=== PATIENT | male | born 1965 | race Caucasian/White ===

== ENCOUNTER 2020-05-16 14:19 | Emergency (ER) | payer OTHER ==
--- NOTE | 2020-05-16 15:19 | ER ---
Nurse's Notes [facility] Name: Earl Loomis III Age: 54 yrs Sex: Male : 1965 Arrival Date: 05/16/2020 Time: 14:22 Bed 17 Private MD: Diagnosis: Puncture wound of the lower leg (Right) Presentation: 05/16 14:47 Chief complaint: Patient states: was mowing grass, small stick punctured his right calf iw area, was able to pull the stick out but is worried about infection , occurred approx 30 minutes ago. 14:47 Acuity: PETER 4 iw 14:47 Method Of Arrival: Ambulatory iw 15:00 Coronavirus screen: At this time, the client does not indicate any symptoms associated zb with coronavirus-19. Ebola Screen: No symptoms or risks identified at this time. Initial Sepsis Screen: Does the patient meet any 2 criteria? No. Patient's initial sepsis screen is negative. Does the patient have a suspected source of infection? No. Patient's initial sepsis screen is negative. Risk Assessment: Do you want to hurt yourself or someone else? Patient reports no desire to harm self or others. Onset of symptoms was May 16, 2020. Historical: - Allergies: 14:48 No Known Allergies; iw - Home Meds: 14:48 lisinopril-hydrochlorothiazide oral oral once daily [Active]; iw - PMHx: 14:48 Hypertension; Hyperlipidemia; iw - PSHx: 14:48 None; iw - Immunization history:: Last tetanus immunization: unknown. - Social history:: Smoking status: Patient/guardian denies using tobacco, Stopped _ months ago 6. Screenin:00 Abuse screen: Denies threats or abuse. Denies injuries from another. Nutritional zb screening: No deficits noted. Tuberculosis screening: No symptoms or risk factors identified. Fall Risk None identified. Assessment: 15:00 General: Appears in no apparent distress. comfortable, Behavior is calm, cooperative, zb appropriate for age. Pain: Complains of pain in lateral aspect of right calf Pain does not radiate. Quality of pain is described as aching. Neuro: Level of Consciousness is awake, alert, obeys commands, Oriented to person, place, time, situation. Cardiovascular: Heart tones S1 S2 present Capillary refill < 3 seconds in bilateral fingers Patient's skin is warm and dry. Respiratory: Airway is patent Respiratory effort is even, unlabored, Respiratory pattern is regular, symmetrical. GI: Abdomen is flat, non-distended, Bowel sounds present X 4 quads. : No signs and/or symptoms were reported regarding the genitourinary system. EENT: No signs and/or symptoms were reported regarding the EENT system. Derm: Skin is healthy with good turgor, Skin is dry, Skin is normal, Skin temperature is warm. Musculoskeletal: Range of motion: intact in all extremities, Swelling present in lateral aspect of right calf. Injury Description: Puncture sustained to lateral aspect of right calf is superficial, was sustained today. 15:50 Reassessment: pt aox4. IM injection wait time completed. gait stable and even. d/c zb instruction explained. Vital Signs: 14:49 BP 111 / 74; Pulse 68; Resp 16; Temp 98.6; Pulse Ox 100% on R/A; Weight 62.14 kg; iw Height 5 ft. 8 in. (172.72 cm); 14:49 Body Mass Index 20.83 (62.14 kg, 172.72 cm) ED Course: 14:22 Patient arrived in ED. as 14:48 Triage completed. 15:00 Sonu Frederick PA is PHCP. [facility] 15:00 Weston Hernandez MD is Attending Physician. [facility] 15:00 Arm band placed on right wrist. zb 15:00 Patient has correct armband on for positive identification. Pulse ox on. NIBP on. Door zb closed. Noise minimized. Warm blanket given. 15:20 Elidia Linda RN is Primary Nurse. zb 15:50 Patient did not have IV access during this emergency room visit. zb 15:54 No provider procedures requiring assistance completed. zb Administered Medications: 15:30 Drug: Tetanus-Diphtheria Toxoid Adult 0.5 ml {Qc Analyst: [employer]. Exp: zb 06/18/2021. Lot #: [id number]. } Route: IM; Site: right deltoid; Outcome: 15:19 Discharge ordered by . jmm 15:51 Patient left the ED. zb Signatures: Sonu Frederick PA PA jmm Martinez, Amelia as Williams, Irene, RN RN Brown, Elidia, RN RN zb Corrections: (The following items were deleted from the chart) 14:49 14:48 Social history: Smoking status: Patient denies any tobacco usage or history of. [facility] 15:54 15:54 General: Appears chris perez
--- NOTE | 2020-05-16 15:19 | EDPHYS ---
Physician Documentation [facility] Name: Earl Loomis III Age: 54 yrs Sex: Male : 1965 Arrival Date: 05/16/2020 Time: 14:22 Bed 17 Private MD: ED Physician Weston Hernandez HPI: 05/16 15:14 This 54 yrs old Male presents to ER via Ambulatory with complaints of jmm Puncture Wound To Leg. 15:14 The patient presents with an injury, pain. Onset: The symptoms/episode began/occurred jmm acutely, just prior to arrival. Modifying factors: The symptoms are alleviated by nothing. the symptoms are aggravated by nothing. Associated signs and symptoms: Pertinent positives: calf tenderness, Pertinent negatives fever, numbness, rash, swelling, tingling, vomiting, warmth, weakness. This is a 54 year old male with a history of htn, hlp that presents to the ED with complaints of right calf injury. Patient states he was hit by a metal wire while mowing his lawn. Patient states he had to pull the object out of his leg. Denies other injury. Historical: - Allergies: 14:48 No Known Allergies; iw - Home Meds: 14:48 lisinopril-hydrochlorothiazide oral oral once daily [Active]; iw - PMHx: 14:48 Hypertension; Hyperlipidemia; iw - PSHx: 14:48 None; iw - Immunization history:: Last tetanus immunization: unknown. - Social history:: Smoking status: Patient/guardian denies using tobacco, Stopped _ months ago 6. ROS: 15:14 Constitutional: Negative for fever, chills, and weight loss, Cardiovascular: Negative jmm for chest pain, palpitations, and edema, Respiratory: Negative for shortness of breath, cough, wheezing, and pleuritic chest pain. 15:14 MS/extremity: Positive for injury or acute deformity. 15:14 All other systems are negative. Exam: 15:14 Constitutional: This is a well developed, well nourished patient who is awake, alert, jmm and in no acute distress. Head/Face: atraumatic. Eyes: EOMI, no conjunctival erythema appreciated ENT: Moist Mucus Membranes Neck: Trachea midline, Supple Chest/axilla: Normal chest wall appearance and motion. Cardiovascular: Regular rate and rhythm. No edema appreciated Respiratory: Normal respirations, no respiratory distress appreciated Abdomen/GI: Non distended, soft Back: Normal ROM 15:14 Skin: puncture wound noted to the right lateral lower leg, no active bleeding, no surrounding erythema. 15:14 Neuro: Orientation: is normal, Mentation: is normal, Memory: is normal. 15:14 Psych: Behavior/mood is pleasant, cooperative. Vital Signs: 14:49 BP 111 / 74; Pulse 68; Resp 16; Temp 98.6; Pulse Ox 100% on R/A; Weight 62.14 kg; iw Height 5 ft. 8 in. (172.72 cm); 14:49 Body Mass Index 20.83 (62.14 kg, 172.72 cm) iw MDM: 15:03 Patient medically screened. [facility] 15:16 Data reviewed: vital signs, nurses notes. Counseling: I had a detailed discussion with temitoep the patient and/or guardian regarding: the historical points, exam findings, and any diagnostic results supporting the discharge/admit diagnosis, the need for outpatient follow up, to return to the emergency department if symptoms worsen or persist or if there are any questions or concerns that arise at home. ED course: Patient given wound infection return precautions. Patient understood and agrees with the plan of care. . 05/16 15:10 Order name: Wound Care; Complete Time: 15:51 [facility] Administered Medications: 15:30 Drug: Tetanus-Diphtheria Toxoid Adult 0.5 ml {Customer Care Voice Consultant: [employer]. Exp: zb 06/18/2021. Lot #: [id number]. } Route: IM; Site: right deltoid; Disposition: 17:22 Co-signature as Attending Physician, Weston Hernandez MD. rn Disposition: 05/16/20 15:19 Discharged to Home. Impression: Puncture wound of the lower leg (Right). - Condition is Stable. - Discharge Instructions: Puncture Wound. - Prescriptions for Doxycycline Hyclate 100 mg Oral Tablet - take 1 tablet by ORAL route every 12 hours; 20 tablet. - Medication Reconciliation Form, Thank You Letter, Antibiotic Education, Prescription Opioid Use form. - Follow up: Private Physician; When: 2 - 3 days; Reason: Recheck today's complaints, Continuance of care, Re-evaluation by your physician. Signatures: Sonu Frederick PA PA jmm Williams, Irene, RN RN iw Nieto, Roman, MD MD rn Brown, Elidia, RN RN zb Corrections: (The following items were deleted from the chart) 14:49 14:48 Social history: Smoking status: Patient denies any tobacco usage or history of. [facility] 15:51 15:19 05/16/2020 15:19 Discharged to Home. Impression: Puncture wound of the lower leg zb (Right). Condition is Stable. Forms are Medication Reconciliation Form, Thank You Letter, Antibiotic Education, Prescription Opioid Use. Follow up: Private Physician; When: 2 - 3 days; Reason: Recheck today's complaints, Continuance of care, Re-evaluation by your physician. jmm
[2020-05-16] MEDS ORDERED: TETANUS & DIPHTHERIA TOX,ADULT 0.5 ML VIAL ONE (15:38)
== END 2020-05-16 15:51 | disposition home or self-care (01) ==
LOC: ER 14:19
DX: S81.831A Puncture wound without foreign body, right lower leg, initial encounter (principal); W22.8XXA Striking against or struck by other objects, initial encounter; Y93.H9 Activity, other involving exterior property and land maintenance, building and construction; Y92.007 Garden or yard of unspecified non-institutional (private) residence as the place of occurrence of the external cause; Z23 Encounter for immunization; I10 Essential (primary) hypertension; E78.5 Hyperlipidemia, unspecified
CPT/HCPCS: 90471; 90714; 99283